=== PATIENT | female | born 1975 | race Caucasian/White ===

== ENCOUNTER 2021-01-17 19:24 | Emergency (ER) | payer MEDICAID ==
[~2021-01-17] VITALS: Ht 167.6 cm; Wt 81.6 kg
[2021-01-17 19:30] VITALS: BP 150/82
--- NOTE | 2021-01-17 19:30 | NUR ---
TO BED AMBULATORY
--- NOTE | 2021-01-17 19:47 | NUR ---
Received in bed 4 with c/o redness left wrist. "I don't have any pain, I'm just worried I have an infection" "I have anxiety". redness noted anterior wrist, FROM noted
[2021-01-17] MEDS ORDERED: MUPI2CRE22 TP (20:26)
--- NOTE | 2021-01-17 20:37 | NUR ---
Patient discharged with v/s stable. Written and verbal after care instructions given and explained. Patient alert, oriented and verbalized understanding of instructions. Ambulatory with steady gait. All questions addressed prior to discharge. ID band removed. Patient advised to follow up with PMD. Rx of MUPIROCIN given. Patient educated on indication of medication including possible reaction and side effects. Opportunity to ask questions provided and answered.
== END 2021-01-17 20:37 | disposition home or self-care (01) ==
LOC: MED 19:24
DX: M25.532 Pain in left wrist (principal); L03.114 Cellulitis of left upper limb; Z79.899 Other long term (current) drug therapy
CPT/HCPCS: 99283

== ENCOUNTER 2022-10-31 21:03 | Emergency (ER) | payer MEDICAID ==
[~2022-10-31] VITALS: Ht 167.6 cm; Wt 79.4 kg
[~2022-10-31 21:03] MED LIST: MUPI2CRE22 TP
[2022-10-31 21:05] VITALS: BP 137/86; PULSE 85; RESP 16; TEMP 97.6; O2SAT 99
--- NOTE | 2022-10-31 21:08 | NUR ---
TO LOBBY A/W BED AMBULATORY
--- NOTE | 2022-10-31 21:26 | NUR ---
PT AMBULATED TO BED 3, CALL LIGHT W/IN REACH.
[2022-10-31] MEDS ORDERED: NACL 0.9% 1,000 ML IV ONE (21:35)
[2022-10-31] MEDS ORDERED: KETOROLAC 15 MG/ML VIAL IVP ONE (21:35)
[2022-10-31] MEDS ORDERED: DICYCLOMINE 20 MG/2 ML VIAL IM ONE (21:55)
--- NOTE | 2022-10-31 21:55 | NUR ---
Urine and blood draw done and sent to lab
[2022-10-31 22:02] LABS: APPEARANCE,URINE CLEAR (CLEAR); BASOPHILS % (AUTO) 0.3 % (0.0-2.0); BILIRUBIN,URINE NEGATIVE (NEGATIVE); BLOOD, URINE NEGATIVE (NEGATIVE); COLOR,URINE YELLOW (YELLOW); EOSINOPHILS # (AUTO) 0.2 K/uL (0-0.4); EOSINOPHILS % (AUTO) 2.6 % (0.0-4.0); HEMATOCRIT 36.4 % (36-48); HEMOGLOBIN 11.7 g/dL (12.0-16.0); LEUKOCYTE ESTERASE ,URINE NEGATIVE (NEGATIVE); LYMPHOCYTES # (AUTO) 1.7 K/uL (2.5-16.5); LYMPHOCYTES % (AUTO) 27.4 % (20.5-51.1); MEAN CORPUSCULAR HEMOGLOBIN 25 pg (27-31); MEAN CORPUSCULAR HGB CONC 32 g/dL (33-37); MONOCYTES # (AUTO) 0.5 K/uL (0.8-1.0); MONOCYTES % (AUTO) 7.7 % (1.7-9.3); NEUTROPHILS # (AUTO) 3.9 K/uL (1.8-7.7); NITRITE, URINE NEGATIVE (NEGATIVE); PLATELET COUNT (AUTO) 272 K/uL (140-450); RED BLOOD CELL COUNT(AUTO) 4.73 MIL/uL (4.20-5.40); RED CELL DISTRIBUTION WIDTH 15.7 % (11.6-13.7); UGLUCOSE NEGATIVE (NEGATIVE); WHITE BLOOD COUNT (AUTO) 6.2 K/uL (4.8-10.8)
[2022-10-31 22:14] LABS: ALBUMIN 3.1 g/dL (3.4-5.0); ANION GAP 10.6 (8-16); CREATININE 0.7 mg/dL (0.6-1.3); POTASSIUM 3.6 mmol/L (3.5-5.1); TOTAL BILIRUBIN 0.3 mg/dL (0.0-1.0)
[2022-10-31] MEDS ORDERED: BEN10 PO (22:48)
[2022-10-31 23:04] VITALS: BP 131/74; PULSE 85; RESP 16; TEMP 97.6; O2SAT 99
--- NOTE | 2022-10-31 23:04 | NUR ---
Patient discharged with v/s stable. Written and verbal after care instructions given and explained. New rx nancy. Patient verbalized understanding. Ambulatory with steady gait. All questions addressed prior to discharge. Advised to follow up with PMD.
== END 2022-10-31 23:07 | disposition home or self-care (01) ==
LOC: MED 21:03
DX: R10.9 Unspecified abdominal pain (principal); R19.7 Diarrhea, unspecified; R30.0 Dysuria; F17.290 Nicotine dependence, other tobacco product, uncomplicated; Z88.6 Allergy status to analgesic agent; Z79.899 Other long term (current) drug therapy; Z98.890 Other specified postprocedural states
CPT/HCPCS: 36415; 80053; 81003; 83690; 85025; 96360; 96372; 99283; J0500; J7030